=== PATIENT | male | born 1995 | race Caucasian/White ===

== ENCOUNTER 2022-01-30 22:05 | Emergency (ER) | payer SELFPAY ==
[~2022-01-30] VITALS: Ht 175.3 cm; Wt 110.4 kg
[2022-01-31 00:36] LABS: CHLORIDE 105 mEq/L (98-107)
[2022-01-31 00:42] LABS: HEMATOCRIT. 44.2 % (42.0-52.0); HEMOGLOBIN. 15.3 g/dL (14.0-18.0); MEAN CORPUSCULAR VOLUME 86.7 fL (80.0-94.0); RED CELL DISTRIBUTION WIDTH 13.3 % (11.6-14.6)
[2022-01-31 00:43] LABS: PLATELET 196 x1000/uL (130-400)
[2022-01-31] MEDS ORDERED: IBUPROFEN 600MG TABLET PO ONE (01:00)
[2022-01-31] MEDS ORDERED: LORAZEPAM 1MG TABLET PO ONE (01:00)
[2022-01-31] MEDS ORDERED: NAPR-1176 MT (02:15)
[2022-01-31 02:47] VITALS: BP 136/89
[2022-01-31 02:58] LABS: PLATELET ESTIMATE NORMAL
== END 2022-01-31 02:59 | disposition home or self-care (01) ==
LOC: ER 22:39
DX: R07.89 Other chest pain (principal)
CPT/HCPCS: 36415; 71045; 80053; 83880; 84484; 85025; 85379; 93005; 99285